=== PATIENT | male | born 1995 | race Asian ===

== ENCOUNTER 2016-12-29 19:11 | Emergency (ER) | payer OTHER ==
[~2016-12-29] VITALS: Ht 167.6 cm; Wt 57.4 kg
[2016-12-29 19:18] VITALS: TEMP 36.8; Ht 167.6 cm; Wt 57.4 kg
[2016-12-29] MEDS ORDERED: MoRPHine SULFATE 4 MG/ML 1 ML CARP\\VIAL IM STA (19:35)
--- NOTE | 2016-12-29 20:04 | DIAGNOSTIC IMAGING REPORT ---
RIGHT CLAVICLE CLINICAL HISTORY: right clavicle injury Right trauma. Pain. COMPARISON: None. DISCUSSION: Displaced fracture midshaft right clavicle. Mild bony overlap. Acromioclavicular joint appears to be intact. Glenohumeral joint appears to be intact. IMPRESSION: Displaced fracture midshaft right clavicle Electronically signed by: Quirino Weldon M.D. 12/29/2016 8:01 PM Dictated Date/Time: 12/29/2016 8:01 PM
[2016-12-29] MEDS ORDERED: OXYCODONE IR HOME PACK PO ONE (20:30)
[2016-12-29] MEDS ORDERED: OXYC1TAB3 PO (21:06)
--- NOTE | 2016-12-29 21:06 | EMERGENCY ROOM VISIT NOTE ---
ED Visit Note First contact with patient: 19:27 CHIEF COMPLAINT: Collar bone injury HISTORY OF PRESENT ILLNESS: This 21-year-old male patient presents to the emergency department ambulatory after he fell onto the right shoulder with sudden onset of pain in the collar bone just prior to arrival. The patient states that he was skateboarding when he fell. There has not been any shortness of breath, inability to move the arm, or head injury. The pain is severe in intensity and steady. It hurts much worse with any movement of the right upper extremity. The patient rates their pain as sharp and and 9/10. The patient has taken no medication for the pain. The patient has not had a previous injury to this clavicle. REVIEW OF SYSTEMS: A 6 system review of systems was completed with positives and pertinent negatives listed in the HPI. ALLERGIES: No known drug allergies MEDICATIONS: No chronic medications PMH: No significant past medical history. SOCIAL HISTORY: The patient is a [employer] student and lives with roommates. PHYSICAL EXAM: Vital Signs: Reviewed Nurse's notes, vital signs stable. GENERAL : This is a 21-year-old male, in no acute distress, but appears in pain. HEART : Regular rate and rhythm without murmurs, ectopy, gallops, or rubs. LUNGS: Clear to auscultation and breath sounds equal, no wheezes, rales, or rhonchi. SKIN: Normal. MUSCULOSKELETAL: There is an obvious deformity of the midshaft of the right clavicle. It is markedly tender over the shaft. There is no tenting of the skin or break in the skin. Decreased range of motion of the right arm. No sulcus sign. The patient has no tenderness over the cervical spine. There is no tenderness over the right shoulder. NEURO: Patient was alert and oriented to person place and time. Normal sensation to light and sharp touch. No focal neurologic deficits. EMERGENCY DEPARTMENT COURSE: I examined the patient. The patient was given 4 mg morphine for pain. An x-ray of the right clavicle was reviewed by myself and radiology and showed a displaced fracture. The patient was placed in a shoulder immobilizer under my direction and the position was satisfactory. Neurovascular status was rechecked and intact. He was given information for orthopedic follow-up. He was given a prescription at home pack of OxyIR. The [place] prescription drug monitoring program was queried and no red flags were identified. The patient was discharged home in stable condition. DIAGNOSIS: Fractured clavicle Current/Historical Medications Scheduled PRN Oxycodone Ir (Roxicodone Ir), 1-2 TAB PO Q4H PRN for Pain Allergies Coded Allergies: No Known Allergies (Unverified , 12/29/16) Vital Signs Date Time Temp Pulse Resp B/P Pulse Ox O2 Delivery O2 Flow Rate FiO2 12/29/16 21:22 68 18 125/75 99 Room Air 12/29/16 19:18 36.8 69 16 128/88 97 Room Air Medications Administered Medications (Trade) Dose Ordered Sig/Matt Route Start Time Stop Time Status Last Admin Dose Admin Morphine Sulfate (MoRPHine SULFATE INJ) 4 mg NOW STAT IM 12/29/16 19:35 12/29/16 19:38 DC 12/29/16 19:43 4 MG Oxycodone HCl (Roxicodone Immediate Rel 5MG Home Pack) 1 homepack UD ONCE PO 12/29/16 20:30 12/29/16 20:31 DC 12/29/16 20:44 1 HOMEPACK Departure Information Impression Primary Impression: Right clavicle fracture Dispostion Home / Self-Care Condition GOOD Prescriptions Oxycodone Ir (Roxicodone Ir) 5 Mg Tab 1-2 TAB PO Q4H Y for Pain, #24 TAB For Initial Treatment Prov: Joyce Santa PA-C 12/29/16 Referrals [facility] (PCP) Hugo Leon D.O. Patient Instructions My [facility] Additional Instructions You have been treated in the Emergency Department for a clavicle fracture. You have received pain medicine in the emergency department which impairs your ability to operate a vehicle. It is illegal for you to drive after receiving these medicines. You have been prescribed Oxy IR to be used for pain control. This is a narcotic medication. You cannot drive or consume alcohol while on this medicine. This medicine should only be used for pain that cannot be controlled with over-the- counter pain medicines. For pain control, you can use the following [id number] medicines (if >12 yo): - Regular strength (325mg/tab) Tylenol (acetaminophen) 2 tabs every 4-6 hours as needed. Do not exceed 12 tablets in a 24 hour period. Avoid taking more than 4 grams (4000 mg) of Tylenol per day. This includes any other sources of acetaminophen you may take on a regular basis. - Regular strength (200 mg/tab) Advil (ibuprofen) 1-2 tabs every 4-6 hours as needed. Do not exceed a dose of 3200 mg per day. If this is a recent injury (<24 hrs), ice can be applied to the area of pain for the first 3 days to help decrease pain and inflammation. You have been provided the number for an Orthopaedic Surgeon. You should call this number as soon as possible to establish a follow-up visit from today's Emergency Department visit. Keep the shoulder brace in place until evaluated by Orthopedics. Return to the Emergency Department if your current symptoms worsen despite treatment course outlined above, or if you develop any of the following symptoms : intractable pain despite aforementioned treatment course or new onset of numbness or tingling of the arm. Problem Qualifiers Primary Impression: Right clavicle fracture Encounter type: initial encounter Clavicle location: shaft Fracture type: closed Fracture alignment: displaced Qualified Codes: S42.021A - Displaced fracture of shaft of right clavicle, initial encounter for closed fracture
[2016-12-29 21:22] VITALS: BP 125/75; PULSE 68; O2SAT 99
== END 2016-12-29 21:25 | disposition home or self-care (01) ==
LOC: EDBD 19:13 → C.EDB 19:13 → C.EDD 21:25
DX: S42.001A Fracture of unspecified part of right clavicle, initial encounter for closed fracture (principal); W19.XXXA Unspecified fall, initial encounter; Y93.51 Activity, roller skating (inline) and skateboarding